=== PATIENT | female | born 1950 | race Caucasian/White ===

== ENCOUNTER 2023-07-22 11:16 | Outpatient (OUT) | payer MEDICARE, SELFPAY ==
--- NOTE | 2023-07-22 11:18 | MM_ITS ---
Patient Name: COCO FOSTER MR#: [id number] : 1950 Exam Date: 07/22/2023 Ordering Doctor: MANJU SCOTT RADIOLOGY REPORT PROCEDURE: MM TOMOSYNTHESIS SCREENING BI COMPARISON: MG MAMM SCREEN 3D ANISA CAD, 07/08/2022. MG MAMM SCREEN 3D ANISA CAD, 04/10/2021. INDICATIONS: Screening Calculator Name NCI Breast Cancer Risk Assessment Tool 5 Year Breast Cancer Risk 3.80% Lifetime Breast Cancer Risk 8.60% Personal Breast Cancer No Personal Ovarian Cancer No Treatments None Family Cancers Mother with breast cancer at age 75; Brother with prostate cancer at age 64; Aunt-paternal with breast cancer at age ~68. LOCATION: [facility] BREAST COMPOSITION: Heterogeneously dense,which may obscure small masses. FINDINGS: DIAGNOSTIC CATEGORY 2--BENIGN FINDING. NO CHANGE FROM COMPARISON. Scattered benign-appearing calcifications are present. RIGHT BREAST: No significant suspicious finding. LEFT BREAST: No significant suspicious finding. RECOMMENDATIONS: ROUTINE MAMMOGRAM AND CLINICAL EVALUATION IN 12 MONTHS. PLEASE NOTE: A NORMAL MAMMOGRAM DOES NOT EXCLUDE THE POSSIBILITY OF BREAST CANCER. A CLINICALLY SUSPICIOUS PALPABLE LUMP SHOULD BE BIOPSIED. Dictated by: Ravin Zavala MD on 07/22/2023 at 12:41 Approved by: Ravin Zavala MD on 07/22/2023 at 12:42
== END 2023-07-22 11:17 | disposition home or self-care (01) ==
LOC: MAMMO 11:16
PROVIDERS: PCP Nurse Practitioner Family; Visit Provider Nurse Practitioner Family
DX: Z12.31 Encounter for screening mammogram for malignant neoplasm of breast (principal); Z80.3 Family history of malignant neoplasm of breast; Z80.42 Family history of malignant neoplasm of prostate
CPT/HCPCS: 77063; 77067

== ENCOUNTER 2024-09-12 09:54 | Outpatient (OUT) | payer MEDICARE, SELFPAY ==
[2024-09-12 10:34] LABS: Basophils Percent Auto 1.1 % (0.2-2.0); Eosinophils Absolute Auto 0.1 10^3/uL (0.0-0.7); Eosinophils Percent Auto 1.9 % (0.9-7.0); Hematocrit 36.6 % (36.0-48.0); Lymphocytes Absolute Auto 1.2 10^3/uL (1.2-3.8); Lymphocytes Percent Auto 33.4 % (20.5-60.0); Mean Corpuscular HGB Conc 32.8 g/dL (29.9-35.2); Mean Corpuscular Hemoglobin 30.9 pg (26.7-34.0); Mean Corpuscular Volume 94.3 fL (81.0-99.0); Mean Platelet Volume 10.5 fL (9.5-13.5); Monocytes Absolute Auto 0.3 10^3/uL (0.3-0.8); Neutrophils Percent Auto 54.6 % (43.0-75.0); Platelet Count 252 10^3/uL (150-450); Red Blood Count 3.88 10^6/uL (4.20-5.40); Red Cell Distribution Width 13.7 % (11.0-15.0); White Blood Count 3.7 10^3/uL (4.0-11.0)
[2024-09-12 10:41] LABS: Estimated Average Glucose 111 mg/dL; Glycohemoglobin A1C 5.5 % (4.5-6.2)
[2024-09-12 11:01] LABS: Creatinine Urine Random 47.66 mg/dL (20.00-300.00); Microalbumin Urine Random <1.3 mg/dL (<=30.0)
[2024-09-12 11:18] LABS: Alanine Aminotransferase 13 U/L (14-59); Albumin Globulin Ratio 0.9; Albumin Level 3.5 g/dL (3.4-5.0); Alkaline Phosphatase 81 U/L (46-116); Aspartate Amino Transferase 13 U/L (15-37); Bilirubin Total 0.5 mg/dL (0.2-1.0); Carbon Dioxide 30.8 mmol/L (21.0-32.0); Chloride 98 mmol/L (98-107); Chol HDL Ratio 2.3; Cholesterol 206 mg/dL (<=200); Estimated GFR (African America >60 (>=60 mL/min/1.73m^2); Estimated GFR (Non-African Ame 57 (>=60 mL/min/1.73m^2); Free T3 1.85 pg/mL (2.18-3.98); Globulin 3.7 g/dL; Glucose 100 mg/dL (74-106); HDL Cholesterol 91 mg/dL (40-60); Potassium 3.8 mmol/L (3.5-5.1); Sodium 136 mmol/L (136-145); Thyroid Stimulating Hormone 3.134 uIU/mL (0.358-3.740); Total Protein 7.2 g/dL (6.4-8.2); Triglycerides 57 mg/dL (<=150); VLDL CHOLESTEROL 11.4 mg/dL
[2024-09-12 11:43] LABS: Free T4 0.75 ng/dL (0.76-1.46)
== END 2024-09-12 09:55 | disposition home or self-care (01) ==
LOC: LAB 09:55
PROVIDERS: PCP Nurse Practitioner Family; Visit Provider Student in an Organized Health Care Education/Training Program
DX: Z00.00 Encounter for general adult medical examination without abnormal findings (principal); I10 Essential (primary) hypertension; E03.9 Hypothyroidism, unspecified; E78.2 Mixed hyperlipidemia; F41.9 Anxiety disorder, unspecified; Z13.1 Encounter for screening for diabetes mellitus; M81.0 Age-related osteoporosis without current pathological fracture
CPT/HCPCS: 36415; 80053; 80061; 82043; 82306; 82570; 83036; 84439; 84443; 84481; 85025

== ENCOUNTER 2025-03-13 10:35 | Outpatient (OUT) | payer MEDICARE, OTHER, SELFPAY ==
--- OUTSIDE RECORDS SUMMARY | 2012-06-28 20:00 | XMS_ITS | Continuity of Care Document ---
Author Organization [facility] Address [address] [place] [address] Phone Care Team Providers Care Tire Bladder Maker Name Role Phone Dori SHARPEYovanny Unavailable Unavailable Procedures Procedure Date FLU VACCINE, 3 YRS & >, IM FLU VACCINE, 3 YRS & >, IM OFFICE/OUTPATIENT VISIT, EST ZOSTER VACC, MI OFFICE/OUTPATIENT VISIT, [facility] PREVENTIVE COUNSELING, INDIV ZOSTER VACC, MI Advance Directives Directive Yes / No Effective Date File Name Resuscitation Not Answered N/A N/A Life Support Not Answered N/A N/A Intubation Not Answered N/A N/A Antibiotics Not Answered N/A N/A IV Fluid Support Not Answered N/A N/A Tube Feed Not Answered N/A N/A Other Directive N/A N/A WARNING:The information contained in this section is historical and is provided for information only and does not constitute a legal document or any assurance that the information is still accurate. Please verify the information with the duggan of the legal document before using it for clinical purposes. Encounters Encounter Description Practice Location Reason(s) For Visit Diagnoses Date Provider Providers Copied on Encounter OFFICE/OUTPAT IENT VISIT, [facility], [address] [place] [address], [id number], [place] tel:[phone] [employer] Influenza Vaccine Dori ELIZONDO Yovanny. [address] [place] [address], [id number] , [place]. tel:[phone] OFFICE/OUTPAT IENT VISIT, [facility], [address] [place] [address], [id number], [place] tel:[phone] [facility] Need for prophylactic vaccination and inoculation, other viral diseases Dori Velasco. [address] [place], [place], [id number] , [place]. tel:[phone] Family History Family Member Type Diagnosis Age At Onset No Information Immunizations Vaccine Date Status Comments Flu (split) (3 yrs or older) administered Source: New Immunization Record Zoster administered Note: Zostavax vis given. ; Source: New Immunization Record Payers Payer name Insurance type Covered alliance party ID Authoriza tion(s) No Information Social History Type Description Quantity Date Captured Comments Alcohol Use Details Unknown Caffeine Use Details Unknown Tobacco Use Status No Information Smoking Status No Information Sex Female Chief Complaint And Reason For Visit No Information Reason For Referral Reason For Referral No Information History Of Present Illness Encounter Date Complaint History Of Prese nt Illness No Information Functional Status Date Functional Assessmen t No Information Instructions Date Instruction Additional Infor mation No Information Assessments Type Assessment Date No Information Patient Care Teams Name Effective Dates (start - stop) Status Members No Information
--- OUTSIDE RECORDS SUMMARY | 2025-03-13 10:41 | XMS_ITS | Encounter Summary ---
Author Organization [facility] Address [address] [place] [address] Phone Care Team Providers Care Signal Technician Name Role Phone Leticia Haven VILCHIS Primary Care Prov ider Irais Khan DO Primary Care Provider [phone] Encounter Details Date Type Department Care Team (Late st Contact Info) Description 09/12/2024 Scanned Document [facility] [address] [place] [phone] Scanning, Generic Provider Social History Tobacco Use Types Packs/Day Years Used Date Smoking Tobacco: Never Smokeless Tobacco: Never Alcohol Use Standard Drinks/Week Comments Never 0 (1 standard drink = 0.6 oz pur e alcohol) Comments Unknown Sex and Gender Information Value Date Recorded Sex Assigned at Not on file Legal Sex Female 1:48 AM EST Gender Identity Not on file Sexual Orientation Not on file documented as of this encounter Plan of Treatment Upcoming Encounters Date Type Department Care Team (Late Contact Info) Description 10/02/2025 1:30 PM EST Office Visit [facility] [facility] [address] [place] [address] Treva Post APRN-CNP [address]03 [facility] [address] [place] [address] documented as of this encounter Visit Diagnoses Not on filedocumented in this encounter Additional Health Concerns Assessment Noted Time A fall risk assessment has been complete d for the patient 06/29/2023 9:28 AM EST documented as of this encounter Care Teams Signal Technician Relationship Specialty Start Date End Date Haven Kelly APRN-FOUZIA [address] [facility] [place] [address] PCP - General 05/17/19 09/18/24 Irais Khan DO [address] [place] [address] PCP - General 09/19/24 documented as of this encounter
--- OUTSIDE RECORDS SUMMARY | 2025-03-13 10:41 | XMS_ITS | Clinical Summary ---
Author Organization [facility] Address [address] [place] [address] Phone Care Team Providers Care Recreational Director Name Role Phone Irais Khan DO Primary Care Provider [phone] Allergies Active Allergy Reactions Criticality Noted Date Comments Hydrocodone-Acetaminophen Nausea/vomiting Medium 05/21 Tuberculin Ppd Swelling Medium 05/21/2023 Medications aspirin 81 mg EC tablet Take 1 tablet (81 mg) by mouth once daily. Active atenolol (Tenormin) 50 mg tablet Take 1 tablet (50 mg) by mouth once daily. Active lisinopril 5 mg tablet Take 1 tablet (5 mg) by mouth once daily. Active pravastatin (Pravachol) 40 mg tablet Take 1 tablet (40 mg) by mouth once daily at bedtime. Active QUEtiapine (SEROquel) 300 mg tablet Take 350 mg by mouth once daily at bedtime. Active CALCIUM 26-VIT D3-MAGNESIUM 15 ORAL Take 1 tablet by mouth 4 times a day. Active alendronate (Fosamax) 70 mg tablet Take 1 tablet (70 mg) by mouth every 7 days. Active multivit-min/ferrou s fumarate (MULTI VITAMIN ORAL) Take 1 tablet by mouth once daily. Active clonazePAM (KlonoPIN) 0.5 mg tablet Take 1 tablet (0.5 mg) by mouth 2 times a day. Active hydroCHLOROthiazide (HYDRODiuril) 12.5 mg tabletIndications:E ssential hypertension Take 1 tablet by mouth once daily 90 tablet 3 3 Active QUEtiapine (SEROquel) 25 mg tablet Take 1 tablet (25 mg) by mouth 2 times a day. 11/30/202 3 Active mirtazapine (Remeron Linda-Tab) 30 mg disintegrating tablet Dissolve 1 tablet (30 mg) in the mouth once daily at bedtime. Active Active Problems Problem Noted Date Diagnosed Date BMI 27.0-27.9,adult 09/19/2024 Assessment & Plan (09/20/2024 8:07 AM EST): Reviewed the merits of healthy lifestyle choices on overall cardiovascular health. Echocardiogram abnormal 05/21/2023 Assessment & Plan (09/20/2024 8:07 AM EST): May 2024 TTE LVEF 60-65% Aortic peak 2-mean 4 MR mild RVSP 35 mmHg Essential hypertension 05/21/2023 Assessment & Plan (09/20/2024 8:07 AM EST): Optimal in office Hyperlipidemia 05/21/2023 Assessment & Plan (09/20/2024 8:07 AM EST): Moderate intensity statin June 2025 LDL 104, HDL 91 Murmur, heart 05/21/2023 Resolved Problems Problem Noted Date Diagnosed Date Resolved Date Nonrheumatic aortic valve insufficiency 05/21/2023 09/19/2024 Immunizations Immunization Administration Dates Next Due Influenza, trivalent, adjuvanted 06/10/2024 Pneumococcal conjugate vaccine, 13-valent (PREVN AR 13) 02/19/2017 Pneumococcal polysaccharide vaccine, 23-valent, age 2 years and older (PNEUMOVAX 23) 05/08/2018 Zoster vaccine, recombinant, adult (SHINGRIX) ,09/15/2023 Family History Medical History Relation Name Comments Prostate cancer Brother Hyperlipidemia Father Heart disease Mother Heart failure Mother Hyperlipidemia Mother Relation Name Status Comments Brother Father Mother Social History Tobacco Use Types Packs/Day Years Used Date Smoking Tobacco: Never Smokeless Tobacco: Never Alcohol Use Standard Drinks/Week Comments Never 0 (1 standard drink = 0.6 oz pur e alcohol) Comments Unknown Sex and Gender Information Value Date Recorded Sex Assigned at Not on file Legal Sex Female 1:48 AM EST Gender Identity Not on file Sexual Orientation Not on file Last Filed Vital Signs Vital Sign Reading Time Taken Comments Blood Pressure 114/70 09/19/2024 3:11 PM EST Pulse 60 09/19/2024 3:11 PM EST Temperature - - Respiratory Rate - - Oxygen Saturation - - Inhaled Oxygen Concentration - - Weight 69.9 kg (154 lb) 09/19/2024 3:11 PM EST Height 160 cm (5' 3 ) 09/19/2024 3:11 PM EST Body Mass Index 27.28 09/19/2024 3:11 PM EST Plan of Treatment Upcoming Encounters Date Type Department Care Team (Late st Contact Info) Description 10/02/2025 1:30 PM EST Office Visit [facility] [address] [facility] [address] [place] [phone] Treva Post, REPAIR CLERK-TRANSMISSION SYSTEMS OPERATOR [address] [facility] [address] [place] [address] Health Maintenance Due Date Last Done Comments Bone Density Scan 1950 CT Colonography 1950 Colonoscopy 1950 Colorectal Cancer Screening 1950 FIT-DNA (Cologuard) 1950 FIT 1950 Lipid Panel 1950 Medicare Annual Wellness Visit (AWV) 1950 Sigmoidoscopy 1950 Hepatitis C Screening 1967 DTaP/Tdap/Td Vaccines (1 - Tdap) 1971 RSV High Risk: (Elderly (60+) or Population) (1 - 1-dose 75+ series) 2024 COVID-19 Vaccine ( - 2023- season) 2024 06/10/2024, 05/10/2023, 06/20/2022, Additional history exists Influenza Vaccine (#1) 2025 06/10/2024 Pneumococcal Vaccine Completed 05/08/2018, 02/20/20 17 Zoster Vaccines Completed 12/11/2023, 09/15/2023 HIB Vaccines Aged Out No longer eligi ble based on patient's age to complete this topic HPV Vaccines Aged Out No longer eligi ble based on patient's age to complete this topic Hepatitis A Vaccines Aged Out No long er eligible based on patient's age to complete this topic Hepatitis B Vaccines Aged Out No long er eligible based on patient's age to complete this topic IPV Vaccines Aged Out No longer eligi ble based on patient's age to complete this topic Meningococcal Vaccine Aged Out No linda damon eligible based on patient's age to complete this topic Rotavirus Vaccines Aged Out No longer eligible based on patient's age to complete this topic Insurance GENERIC COMMERCIAL MEDICARE PART A AND B GENERIC COMMERCIAL MEDICARE PART A AND B Care Teams Recreational Director Relationship Specialty Start Date End Date Irais Khan DO [address] [place] [address] PCP - General 09/19/24
--- OUTSIDE RECORDS SUMMARY | 2025-03-13 10:41 | XMS_ITS | Encounter Summary ---
Author Organization [facility] Address [address] [place] [address] Phone Care Team Providers Care Auto Body Man Name Role Phone Haven Kelly Primary Care Prov ider Irais Khan DO Primary Care Provider [phone] Encounter Details Date Type Department Care Team (Late st Contact Info) Description 06/10/2023 Scanned Document [facility] [address] [place] [phone] Scanning, Generic Provider Social History Tobacco Use Types Packs/Day Years Used Date Smoking Tobacco: Never Assessed Comments Unknown Sex and Gender Information Value Date Recorded Sex Assigned at Not on file Legal Sex Female 1:48 AM EST Gender Identity Not on file Sexual Orientation Not on file documented as of this encounter Plan of Treatment Upcoming Encounters Date Type Department Care Team (Late st Contact Info) Description 10/02/2025 1:30 PM EST Office Visit [facility] [address] [facility] [address] [place] [address] Treva Post APRN-CNP [address] [facility] [address] [place], [place] [phone] documented as of this encounter Visit Diagnoses Not on filedocumented in this encounter Care Teams Auto Body Man Relationship Specialty Start Date End Date Haven Kelly APRN-CNP [address] [facility] [place] [place] [address] PCP - General 05/17/19 09/18/24 Irais Khan DO [address] [facility] [place] [address] PCP - General 09/19/24 documented as of this encounter
--- OUTSIDE RECORDS SUMMARY | 2025-03-13 10:41 | XMS_ITS | Encounter Summary ---
Author Organization [facility] Address [address] [place] [address] Phone Care Team Providers Care Ledger Poster Name Role Phone Leticia Haven VILCHIS Primary Care Prov ider Irais Khan DO Primary Care Provider [phone] Encounter Details Date Type Department Care Team (Late st Contact Info) Description 11/11/2023 Scanned Document [facility] [address] [place] [phone] Scanning, Generic Provider Social History Tobacco Use [...] Description 10/02/2025 1:30 PM EST Office Visit [facility] [address] [facility] [address] [place] [phone] Treva Post APRN-CNP 703 [facility] [address] [place] [address] Scheduled Orders Name Type Priority Associated Diagnoses Orde r Schedule Ultrasound- OnBase Scan Imaging O rdered: 11/11/2023 Ultrasound- OnBase Scan Imaging O rdered: 11/11/2023 documented as of this encounter Visit Diagnoses Not on filedocumented in this encounter Additional Health Concerns Assessment Noted Time A fall risk assessment has been complete d for the patient 06/29/2023 9:28 AM EST documented as of this encounter Care Teams Ledger Poster Relationship Specialty Start Date End Date Haven Kelly APRN-FOUZIA [address] [facility] [place] [address] PCP - General 05/17/19 09/18/24 Irais Khan DO [address] [facility] [place] [address] PCP - General 09/19/24 documented as of this encounter
--- OUTSIDE RECORDS SUMMARY | 2025-03-13 10:41 | XMS_ITS | Clinical Summary ---
Author Organization [facility] Address [address] [place] [address] Care Team Providers Care Wheel Grinder Name Role Phone Unavailable Primary Care Provider Unavailabl e Social History Tobacco Use Types Packs/Day Years Used Date Smoking Tobacco: Never Assessed Comments Unknown Sex and Gender Information Value Date Recorded Sex Assigned at Not on file Legal Sex Female 6:57 PM EDT Gender Identity Not on file Sexual Orientation Not on file Last Filed Vital Signs Vital Sign Reading Time Taken Comments Blood Pressure 117/69 06/07/2018 12:00 PM EDT Pulse - - Temperature - - Respiratory Rate - - Oxygen Saturation - - Inhaled Oxygen Concentration - - Weight - - Height - - Body Mass Index - - Plan of Treatment Not on file
--- NOTE | 2025-03-13 10:46 | MM_ITS ---
Patient Name: COCO FOSTER MR#: [id number] : 1950 Exam Date: 03/13/2025 Ordering Doctor: ANUJA LAM RADIOLOGY REPORT PROCEDURE: MM TOMOSYNTHESIS SCREENING BI COMPARISON: MM TOMOSYNTHESIS SCREENING BI, 07/22/2023. MG MAMM SCREEN 3D ANISA CAD, 07/08/2022. MG MAMM SCREEN 3D ANISA CAD, 04/10/2021. MG MAMM ANISA SCRN W CAD DIG, 03/21/2013. INDICATIONS: screening for malignant neoplasm of breast Calculator Name NCI Breast Cancer Risk Assessment Tool 5 Year Breast Cancer Risk 3.80% Lifetime Breast Cancer Risk 8.10% Personal Breast Cancer No Personal Ovarian Cancer No Treatments None Family Cancers Mother with breast cancer at age 75; Brother with prostate cancer at age 64; Aunt-paternal with breast cancer at age ~68. LOCATION: [facility] BREAST COMPOSITION: There are scattered areas of fibroglandular density. FINDINGS: RIGHT BREAST: No significant suspicious finding. LEFT BREAST: No significant suspicious finding. DIAGNOSTIC CATEGORY 1--NEGATIVE. RECOMMENDATIONS: ROUTINE MAMMOGRAM AND CLINICAL EVALUATION IN 12 MONTHS. PLEASE NOTE: A NORMAL MAMMOGRAM DOES NOT EXCLUDE THE POSSIBILITY OF BREAST CANCER. A CLINICALLY SUSPICIOUS PALPABLE LUMP SHOULD BE BIOPSIED. Dictated by: Malcolm Torres MD on 03/13/2025 at 12:30 Approved by: Malcolm Torres MD on 03/13/2025 at 13:29
== END 2025-03-13 10:36 | disposition home or self-care (01) ==
LOC: MAMMO 10:40
PROVIDERS: PCP Student in an Organized Health Care Education/Training Program; Visit Provider Student in an Organized Health Care Education/Training Program
DX: Z12.31 Encounter for screening mammogram for malignant neoplasm of breast (principal); Z80.3 Family history of malignant neoplasm of breast; Z80.42 Family history of malignant neoplasm of prostate
CPT/HCPCS: 77063; 77067

== ENCOUNTER 2025-08-02 10:43 | Outpatient (OUT) | payer MEDICARE, OTHER, SELFPAY ==
--- OUTSIDE RECORDS SUMMARY | 2025-08-02 10:47 | XMS_ITS | Clinical Summary ---
Author Organization [facility] Address [address] [place] [address] Phone Care Team Providers Care Smoked Meat Preparer Name Role Phone Irais Khan DO Primary Care Provider Allergies Active AllergyReactionsCriticalityNoted DateCommentsHydrocodone-Acetaminophen Nausea/quievymlTuiclz91/05/2023Tuberculin MgzDzyglcezTxgqrn80/05/2023 Medications MedicationSigDispense QuantityRefillsLast FilledStart DateEnd DateStatus aspirin 81 mg EC tablet Take 1 tablet (81 mg) by mouth once daily.Active QUEtiapine (SEROquel) 300 mg tablet Take 350 mg by mouth once daily at bedtime.Active CALCIUM 26-VIT D3-MAGNESIUM 15 ORAL Take 1 tablet by mouth 4 times a day.Active alendronate (Fosamax) 70 mg tablet Take 1 tablet (70 mg) by mouth every 7 days.Active multivit-min/ferrous fumarate (MULTI VITAMIN ORAL) Take 1 tablet by mouth once daily.Active clonazePAM (KlonoPIN) 0.5 mg tablet Take 1 tablet (0.5 mg) by mouth 2 times a day.Active QUEtiapine (SEROquel) 25 mg tablet Take 1 tablet (25 mg) by mouth 2 times a day.07/16/2023ctive mirtazapine (Remeron Linda-Tab) 30 mg disintegrating tablet Dissolve 1 tablet (30 mg) in the mouth once daily at bedtime.Active atenolol (Tenormin) 50 mg tablet Indications:Essential hypertensionTake 1 tablet (50 mg) by mouth once daily. 90 tablet ctive lisinopril 5 mg tablet Indications:Essential hypertensionTake 1 tablet (5 mg) by mouth once daily. 90 tablet 511/6Active hydroCHLOROthiazide (Microzide) 12.5 mg tablet Indications:Essential hypertensionTake 1 tablet (12.5 mg) by mouth once daily. 90 tablet 5Active pravastatin (Pravachol) 40 mg tablet Indications:Mixed hyperlipidemiaTake 1 tablet (40 mg) by mouth once daily at bedtime. 90 tablet 511/ctive Active Problems ProblemNoted DateDiagnosed DateBMI 27.0-27.9,adult09/19/2024 Assessment & Plan (09/20/2024 8:07 AM EST): Reviewed the merits of healthy lifestyle choices on overall cardiovascular health. Echocardiogram aeiebqzd05/05/2023 Assessment & Plan (09/20/2024 8:07 AM EST): May 2024 TTE LVEF 60-65% Aortic peak 2-mean 4 MR mild RVSP 35 mmHg Essential oqlqtjvgvurg42/05/2023 Assessment & Plan (09/20/2024 8:07 AM EST): Optimal in office Mbxenrvxonqfvz60/05/2023 Assessment & Plan (09/20/2024 8:07 AM EST): Moderate intensity statin June 2025 LDL 104, HDL 91 Murmur, heart05/21/2023 Resolved Problems ProblemNoted DateDiagnosed DateResolved DateNonrheumatic aortic valve eytfmgoyeybpz93/05/202302/10/2024 Encounters DateTypeDepartmentCare HobuYanpfgaaerz10/31/2025Refill at [facility] [address] [address] Jemma Chau RN Essential hypertension; Mixed hyperlipidemiafrom Last 3 Months Immunizations ImmunizationAdministration DatesNext DueInfluenza, trivalent, adjuvanted 4Pneumococcal conjugate vaccine, 13-valent (PREVNAR 13)02/19/2017 Pneumococcal polysaccharide vaccine, 23-valent, age 2 years and older (PNEUMOVAX 23)05/08/2018Zoster vaccine, recombinant, adult (SHINGRIX)12/11/2023,09/15/2023 Family History Medical HistoryRelationNameCommentsProstate cancerBrotherHyperlipidemiaFather Heart diseaseMotherHeart failureMotherHyperlipidemiaMotherRelationNameStatus CommentsBrotherFatherMother Social History Tobacco UseTypesPacks/DayYears UsedDateSmoking Tobacco: NeverSmokeless Tobacco: NeverAlcohol UseStandard Drinks/WeekCommentsNever0 (1 standard drink = 0.6 oz pure alcohol)CommentsUnknownSex and Gender InformationValueDate Recorded Sex Assigned at BirthNot on fileLegal LrjTbmfzx72/26/2022 1:48 AM ESTGender IdentityNot on fileSexual OrientationNot on file Last Filed Vital Signs Vital SignReadingTime TakenCommentsBlood Xfllokpx549/70009/19/2024 3:11 PM EST Fjrge3039/03/2025 3:11 PM ESTTemperature--Respiratory Rate--Oxygen Saturation-- Inhaled Oxygen Concentration--Jwxhdc91.9 kg (154 lb)09/19/2024 3:11 PM ESTHeight 160 cm (5' 3 )09/19/2024 3:11 PM ESTBody Mass Index27.28009/19/2024 3:11 PM EST Plan of Treatment DateTypeDepartmentCare Team (Latest Contact Info)Rluamcdpnxr60/16/2026 1:30 PM ESTOffice Visit at [facility] [address] [phone] Treva Post, [employer]AREPOINT ADMIN-WIRE STRAIGHTENING MACHINE OPERATOR 703 [facility] [address] [place] [address] Health MaintenanceDue DateLast DoneCommentsLipid Panel1949Medicare Annual Wellness Visit (AWV)1950Hepatitis C Whojotsrc16/31/1967DTaP/Tdap/Td Vaccines (1 - Tdap)1971Bone Density Scan2014RSV High Risk: (Elderly (60+) or Population) (1 - 1-dose 75+ series)2024Influenza Vaccine (#1)OVID-19 Vaccine ( - 2024- season)2025 06/10/2024, 05/10/2023, 06/20/2022, Additional history existsPneumococcal VjizuybYdxxvkamd45/22/2018, 02/19/2017Zoster BdwgxqabEfcvjdhcj38/26/2024, 09/15/2023HIB VaccinesAged OutNo longer eligible based on patient's age to complete this topicHPV VaccinesAged OutNo longer eligible based on patient's age to complete this topicHepatitis A VaccinesAged OutNo longer eligible based on patient's age to complete this topicHepatitis B VaccinesAged OutNo longer eligible based on patient's age to complete this topicIPV VaccinesAged OutNo longer eligible based on patient's age to complete this topicMeningococcal VaccineAged OutNo longer eligible based on patient's age to complete this topic Rotavirus VaccinesAged OutNo longer eligible based on patient's age to complete this topic Insurance Care Teams Team MemberRelationshipSpecialtyStart DateEnd Date Irais Khan DO [address] [facility] [place] [address] PCP - General09/19/24
--- OUTSIDE RECORDS SUMMARY | 2025-08-02 10:47 | XMS_ITS | Clinical Summary ---
Author Organization [facility] Address [address] [place] [address] Care Team Providers Care Health And Wellness Coordinator Name Role Phone Unavailable Primary Care Provider Unavailabl e Social History Tobacco UseTypesPacks/DayYears UsedDateSmoking Tobacco: Never Assessed CommentsUnknownSex and Gender InformationValueDate RecordedSex Assigned at Not on fileLegal LplPsvigs53/15/2023 6:57 PM EDTGender IdentityNot on fileSexual OrientationNot on file Last Filed Vital Signs Vital SignReadingTime TakenCommentsBlood Sykttpgn471/6910/ 12:00 PM EDT Pulse--Temperature--Respiratory Rate--Oxygen Saturation--Inhaled Oxygen Concentration--Weight--Height--Body Mass Index-- Plan of Treatment Not on file
== END 2025-08-02 10:44 | disposition home or self-care (01) ==
LOC: RAD 10:44
PROVIDERS: PCP Student in an Organized Health Care Education/Training Program; Visit Provider Student in an Organized Health Care Education/Training Program
DX: Z78.0 Asymptomatic menopausal state (principal); M85.88 Other specified disorders of bone density and structure, other site
CPT/HCPCS: 77080